=== PATIENT | male | born 1995 | race Two or more races ===

== ENCOUNTER 2021-12-17 18:26 | Emergency (ER) | payer BC, MEDICAID ==
[~2021-12-17] VITALS: Ht 177.8 cm; Wt 90.7 kg
[~2021-12-17 18:26] MED LIST: HYDR-3682; IBUP400T35
[2021-12-17 18:31] VITALS: BP 163/67
== END 2021-12-17 21:43 | disposition left against medical advice (07) ==
LOC: ER 18:27
DX: L02.811 Cutaneous abscess of head [any part, except face] (principal); Z53.21 Procedure and treatment not carried out due to patient leaving prior to being seen by health care provider